=== PATIENT | female | born 1955 | race Caucasian/White ===

== ENCOUNTER → 2016-12-21 | Outpatient (CLI) | payer OTHER ==
[~2016-12-21] MED LIST: MOTRIN800 MG PO
== END ==
LOC: MAMMO 16:27
DX: Z12.31 Encounter for screening mammogram for malignant neoplasm of breast (principal)

== ENCOUNTER → 2017-03-09 | Day surgery (SDC) | payer OTHER ==
[~2017-03-09] VITALS: Ht 165.1 cm; Wt 74.8 kg
[~2017-03-09] MED LIST changes: +ASPIRIN81 M1 PO; +FIBER GUMMIES2 GM PO; +KRILL OIL500 MG PO; +TUMS ULTRA ST1177 MG PO; +VITAMIN D-32000 UNI1 PO
--- NOTE | ~2017-03-09 | O ---
[place], [place] OPERATIVE NOTE NAME: BRITTANY KIDD UNIT #: [id number] ROOM: DOCTOR: DYLON ALMANZA MD BIRTHDATE: [birth year] DOS: 03/09/2017 GASTROENDOSCOPIC REPORT INDICATIONS: A 61-year-old patient with history of colonic polyps. ALLERGIES: DEMEROL. FAMILY HISTORY: Noncontributory. PAST SURGICAL HISTORY: Appendectomy, hysterectomy. PAST MEDICAL HISTORY: Unremarkable otherwise, except constipation and diarrhea alterations. PROCEDURE: Today's procedure part of investigation is colonoscopy. PREMEDICATION: Versed and Diprivan. SCOPE: Olympus folding colonoscope 10L video. REPORT: After putting the patient in the left lateral position and after application of lubricant to rectal pouch and digital examination, scope was introduced. Thereafter, under direct visualization, I advanced through the length of colon to the base of cecum, ileocecal valve was defined. Appendiceal orifice identified. Ileocecal valve defined and photographed. The patient extubated gradually to the left side of the colon, diverticulosis of sigmoid colon as identified, moderate degree of diverticulosis noticed. Air was suctioned out. The patient was extubated, tolerated the procedure well. IMPRESSION: Diverticulosis of sigmoid colon, otherwise normal colonoscopic examination, no polypoid lesion. PLAN AND DISCUSSION: High fiber fruit diet. ACTIVITY: Ad juan luis. FOLLOWUP: As outpatient and next colonoscopy at 5 years' time. [place], [place] OPERATIVE NOTE NAME: BRITTANY KIDD UNIT #: [id number] ROOM: DOCTOR: DYLON ALMANZA MD BIRTHDATE: [birth year] DYLON ALMANZA MD CM:OPRECORD:OPERATIVE NOTE [id number] DYLON ALMANZA MD 03/09/17 1231 interface
[2017-03-09 09:23] VITALS: BP 138/81
[2017-03-09 09:41] VITALS: BP 78/30
[2017-03-09 09:56] VITALS: BP 90/42
[2017-03-09 10:11] VITALS: BP 104/56
== END | disposition home or self-care (01) ==
LOC: SDC 03-04 08:00
DX: Z09 Encounter for follow-up examination after completed treatment for conditions other than malignant neoplasm (principal); K57.30 Diverticulosis of large intestine without perforation or abscess without bleeding; Z87.19 Personal history of other diseases of the digestive system; Z90.49 Acquired absence of other specified parts of digestive tract; Z90.710 Acquired absence of both cervix and uterus; E78.00 Pure hypercholesterolemia, unspecified; Z80.9 Family history of malignant neoplasm, unspecified

== ENCOUNTER → 2017-10-24 | Outpatient (CLI) | payer OTHER ==
[2017-10-24 08:48] LABS: ALBUMIN 4.3 gm/dl (3.1-4.5); BUN 16 mg/dl (7-24); CHLORIDE 103 mmol/L (98-107); CHOLESTEROL 271 mg/dL (<200); POTASSIUM 4.4 mmol/L (3.5-5.1); SGOT/AST 21 IU/L (3-35); SGPT/ALT 32 U/L (12-78); SODIUM 140 mmol/L (136-145); TOTAL PROTEIN 7.5 gm/dL (6.4-8.2); TRIGLYCERIDES 161 mg/dl (<150); VLDL CHOLESTEROL 32 mg/dL (6-40)
[2017-10-24 08:49] LABS: ALKALINE PHOSPHATASE 86 U/L (45-117); HDL CHOLESTEROL 49 mg/dl (40-60); LDL CHOLESTEROL 190 mg/dL (9-159)
[2017-10-24 08:54] LABS: HEMATOCRIT 45.2 % (37.0-47.0); MEAN CELL VOLUME 90.6 fl (81.0-99.0); MEAN CORPUSCULAR HGB 30.1 pg (27.0-31.0); MEAN CORPUSCULAR HGB CONC 33.2 g/dl (33.0-37.0); MEAN PLATELET VOLUME 11.3 fl (9.6-12.3); RED BLOOD COUNT 4.99 10*6/uL (4.10-5.10); WHITE BLOOD COUNT 5.8 10*3/uL (4.8-10.8)
== END | disposition home or self-care (01) ==
LOC: LAB 07:21
PROVIDERS: Registered Nurse Flight
DX: Z00.01 Encounter for general adult medical examination with abnormal findings (principal); R79.89 Other specified abnormal findings of blood chemistry

== ENCOUNTER → 2018-01-23 | Outpatient (CLI) | payer OTHER ==
[2018-01-23 08:07] LABS: ALBUMIN 4.1 gm/dl (3.1-4.5); ALKALINE PHOSPHATASE 74 U/L (45-117); BUN 19 mg/dl (7-24); CHLORIDE 107 mmol/L (98-107); CHOLESTEROL 207 mg/dL (<200); CREATININE 0.86 mg/dL (0.55-1.02); HDL CHOLESTEROL 44 mg/dl (40-60); LDL CHOLESTEROL 144 mg/dL (9-159); SGOT/AST 12 IU/L (3-35); SGPT/ALT 26 U/L (12-78); SODIUM 144 mmol/L (136-145); TOTAL PROTEIN 7.4 gm/dL (6.4-8.2); TRIGLYCERIDES 93 mg/dl (<150); VLDL CHOLESTEROL 19 mg/dL (6-40)
== END | disposition home or self-care (01) ==
LOC: LAB 07:13
PROVIDERS: Registered Nurse Flight
DX: E11.9 Type 2 diabetes mellitus without complications (principal); E78.00 Pure hypercholesterolemia, unspecified

== ENCOUNTER → 2018-07-05 | Outpatient (CLI) | payer OTHER | END | disposition home or self-care (01) | LOC: MAMMO 09:50 | DX: Z12.31 Encounter for screening mammogram for malignant neoplasm of breast (principal) ==

== ENCOUNTER 2021-05-12 04:43 | Inpatient (IN) | payer MEDICARE ==
[~2021-05-12] VITALS: Ht 162.5 cm; Wt 72.6 kg
[2021-05-12 04:59] VITALS: BP 134/67
[2021-05-12 06:14] LABS: BASO # 0.1 10*3/uL (0.0-0.1); EOS # 0.1 10*3/uL (0.0-0.4); HEMATOCRIT 42.8 % (37.0-47.0); LYMPH # 1.9 10*3/uL (1.3-4.4); LYMPH % 32.6 % (27.0-41.0); MEAN CELL VOLUME 91.3 fl (81.0-99.0); MEAN CORPUSCULAR HGB 29.9 pg (27.0-31.0); MEAN CORPUSCULAR HGB CONC 32.7 g/dl (33.0-37.0); MEAN PLATELET VOLUME 11.5 fl (9.6-12.3); MONO # 0.5 10*3/uL (0.1-1.0); MONO % 8.6 % (3.0-9.0); NEUT # 3.2 10*3/uL (2.3-7.9); NEUT % 56.5 % (47.0-73.0); PLATELET COUNT AUTOMATED 226 10*3/uL (130-400); RED BLOOD COUNT 4.69 10*6/uL (4.10-5.10); RED CELL DISTRI WIDTH 12.7 % (0-14.5); WHITE BLOOD COUNT 5.7 10*3/uL (4.8-10.8)
[2021-05-12 06:32] LABS: ALBUMIN 3.9 gm/dl (3.1-4.5); ALKALINE PHOSPHATASE 89 U/L (45-117); BUN 17 mg/dl (7-24); CHLORIDE 107 mmol/L (98-107); CREATININE 0.73 mg/dL (0.55-1.02); POTASSIUM 3.9 mmol/L (3.5-5.1); SGOT/AST 17 IU/L (3-35); SGPT/ALT 23 U/L (12-78); SODIUM 139 mmol/L (136-145)
[2021-05-12 06:34] LABS: TROPONIN I < 0.015 ng/ml (<0.045)
[2021-05-12 08:18] VITALS: BP 123/54
[2021-05-12 12:34] VITALS: BP 124/55
[2021-05-12 13:44] LABS: CHOLESTEROL 260 mg/dL (<200); TRIGLYCERIDES 121 mg/dl (<150)
[2021-05-12 13:46] LABS: LDL CHOLESTEROL 182 mg/dL (9-159)
[2021-05-12] MEDS ORDERED: LIPITOR20 MG PO (13:52)
== END 2021-05-12 14:30 | disposition home or self-care (01) | DRG 313 ==
LOC: ED 04:43 → EDHOLD 07:57
PROVIDERS: Emergency Medicine; Internal Medicine; ADMIT Family Medicine; ATTEND Family Medicine
PROC: 4A02XM4 Measurement of Cardiac Total Activity, External Approach (ICD-10-PCS; principal; 2021-05-12)
PROC: 3E033HZ Introduction of Radioactive Substance into Peripheral Vein, Percutaneous Approach (ICD-10-PCS; 2021-05-12)
DX: R07.89 Other chest pain (principal); E83.41 Hypermagnesemia; R73.9 Hyperglycemia, unspecified; E78.5 Hyperlipidemia, unspecified; E66.3 Overweight; Z90.710 Acquired absence of both cervix and uterus; Z90.49 Acquired absence of other specified parts of digestive tract; Z80.0 Family history of malignant neoplasm of digestive organs; Z88.8 Allergy status to other drugs, medicaments and biological substances; Z79.82 Long term (current) use of aspirin; Z79.899 Other long term (current) drug therapy

== ENCOUNTER → 2021-08-03 | Outpatient (CLI) | payer MEDICARE ==
[~2021-08-03] MED LIST changes: +LIPITOR20 MG PO
== END | disposition home or self-care (01) ==
LOC: US 13:23
PROVIDERS: ATTEND Physician Assistant
DX: E04.2 Nontoxic multinodular goiter (principal)

== ENCOUNTER → 2021-09-01 | Outpatient (CLI) | payer MEDICARE ==
[2021-09-01 08:45] LABS: ACT PARTIAL THROMBO TIME 25.7 SECONDS (20.0-32.1)
== END | disposition home or self-care (01) ==
LOC: US 03:09 → LAB 03:09 → US 09:00
PROVIDERS: ATTEND Physician Assistant
DX: E04.1 Nontoxic single thyroid nodule (principal); F41.9 Anxiety disorder, unspecified; R73.09 Other abnormal glucose; E78.00 Pure hypercholesterolemia, unspecified; Z85.820 Personal history of malignant melanoma of skin; Z85.038 Personal history of other malignant neoplasm of large intestine; Z90.710 Acquired absence of both cervix and uterus; Z90.49 Acquired absence of other specified parts of digestive tract; Z98.890 Other specified postprocedural states; Z79.01 Long term (current) use of anticoagulants; Z79.899 Other long term (current) drug therapy

== ENCOUNTER → 2023-09-06 | Outpatient (CLI) | payer MEDICARE | END | disposition home or self-care (01) | LOC: MAMMO 03:28 | PROVIDERS: ATTEND Physician Assistant | DX: Z12.31 Encounter for screening mammogram for malignant neoplasm of breast (principal) ==